=== PATIENT | female | born 1975 | race Caucasian/White ===

== ENCOUNTER 2022-04-20 13:03 | Outpatient (CLI) | payer OTHER, SELFPAY ==
--- NOTE | ~2022-04-20 | US_ITS ---
EXAMINATION: US pelvic complete w TV DATE: 04/20/2022 14:06 INDICATION: Pelvic and perineal pain Comparison:No prior studies for comparison. TECHNIQUE: Multiple transabdominal and endovaginal sonographic images of the pelvis performed. FINDINGS: The uterus measures 9.6 x 4.5 x 4.7 cm. The endometrial complex is not well identified for measurement. There are some nabothian cysts of the cervix. There is a poorly defined hypoechoic mass at the fundus of the uterus, consistent with a fibroid. The ovaries are not visualized. There is no free fluid in the pelvis. There are no abnormal masses seen on either side. IMPRESSION: 1. Enlarged uterus with fibroid changes. Reviewed, dictated and finalized at location B.
== END 2022-04-20 13:04 | disposition home or self-care (01) ==
LOC: ANHIMG 13:05
PROVIDERS: PCP Family Medicine; Visit Provider Family Medicine
DX: R10.2 Pelvic and perineal pain (principal); D25.9 Leiomyoma of uterus, unspecified
CPT/HCPCS: 76830; 76856

== ENCOUNTER 2022-08-02 07:53 | Outpatient (CLI) | payer OTHER, SELFPAY | END 2022-08-02 07:54 | disposition home or self-care (01) | PROVIDERS: PCP Family Medicine; Visit Provider Student in an Organized Health Care Education/Training Program | DX: Z01.812 Encounter for preprocedural laboratory examination (principal); D25.9 Leiomyoma of uterus, unspecified | CPT/HCPCS: 36415; 86850; 86900; 86901 ==

== ENCOUNTER 2022-08-05 00:54 | Day surgery (SDC) | payer OTHER, SELFPAY ==
[2022-08-01 15:13] VITALS: BMI 32.8
--- NOTE | 2022-08-01 15:24 | PC.NURSE ---
Report to the Outpatient Waiting Room, entrance under the green pavilion located off [facility], at 0600 on 08/05/22. OR Time: 0730. Time changes happen often and if your time is changed the preop area will call you the afternoon before. - You and your visitor will be asked to self-screen and do not enter if you have any COVID symptoms. - Only one visitor and NO children visitors are allowed at this time. - The patient visitor is requested to leave or wait in car when not with patient due to restrictions. - A mask is required within the hospital. Patients may have clear liquids (water, carbonated beverages, clear teas, apple juice) until 3 hours prior to surgery with a maximum of 20 ounces. - No food from midnight until time of surgery Take the following medications with a SIP of water the morning of surgery: N/A Medications to discontinue per physician N/A Date to take last dose N/A Please no make-up, nail english, hairspray, perfume, deodorant, or body powder the day of surgery. No jewelry (including any body piercings) or valuables the day of surgery, leave them at home. Please take a shower or bath the night before, or the morning of, surgery with an antibacterial soap. Wear comfortable, loose fitting clothing. - Jewelry must be removed prior to entering the operating room. Rings and piercings that are not removed may be cut off. - The hospital will not accept responsibility for valuables. - Please leave all valuables, including medications, at home the day of surgery. If you are going home after surgery, a licensed superintendent drivers must drive you home. - NO public transportation without another adult. - We recommend that an adult stay with you for 24 hours following discharge. - We also recommend that you do not drive, make important decision, drink alcoholic beverages, or take any drugs that were not prescribed by your health care provider for at least 24 hours after your discharge time. Follow any additional instructions given to you from your surgeon. If you or anyone in your household have experienced Covid symptoms in the past week, please notify your surgeon or the nurse liaison at the phone number below for possible testing. Telephone instructions given to patient and asked if any additional questions and then verbalized understanding. Patient advised to call surgeon office or pre surgery nurse liaison [phone] if any additional questions.
--- NOTE | 2022-08-04 17:06 | PM.IMHP ---
H&P: HPI History of Present Illness Date/Time: 08/04/22 17:06 Chief Complaint: Pelvic pain and fibroid uterus Narrative: Patient is a 47yo woman with a history of pelvic pain and fibroid uterus. Patient reports development of pelvic pain in approximately mid February 2022.? States that pain is present almost daily and is mostly left sided.? States that some days pain is dull in nature, however, other days it intensifies and becomes very severe.? Patient reports radiation of pain to lower back as well as sometimes down left leg. Pain is usually alleviated with Ibuprofen, however, sometimes this is ineffective. She does have a history of an endometrial ablation that was performed at approximately 2005. Management options discussed with patient. Following discussion, patient would like to proceed with hopefully, definitive management with a hysterectomy. In general, she is well today without complaints. Review of Systems Review of Systems: All systems reviewed & are unremarkable except as noted in HPI and below Constitutional: Constitutional: Reports as per HPI and Reports no additional constitutional complaints Eyes: Eyes: Reports as per HPI and Reports no additional eye complaints ENT: Reports system reviewed and no additional complaints, except as documented and Reports as per HPI Cardiovascular: Cardiovascular: Reports as per HPI and Reports no additional cardiovascular complaints Respiratory: Respiratory: Reports as per HPI and Reports no additional respiratory complaints Gastrointestinal: Gastrointestinal: Reports as per HPI and Reports no additional gastrointestinal complaints Genitourinary: Genitourinary: Reports no additional female genitourinary complaints and Reports as per HPI Musculoskeletal: Musculoskeletal: Reports no additional musculoskeletal complaints and Reports as per HPI Integumentary/Breasts: Skin/Breast: Reports system reviewed and no additional complaints, except as docu and Reports as per HPI Neurologic: Reports system reviewed and no additional complaints, except as documented and Reports as per HPI Psychiatric: Psychiatric: Reports no additional psychiatric complaints and Reports as per HPI Endocrine: Endocrine: Reports no additional endocrine complaints and Reports as per HPI Hematologic/Lymphatic: Hematologic/Lymphatic: Reports no additional hematologic/lymphatic complaints and Reports as per HPI Allergic/Immunologic: Allergic/Immunologic: Reports no additional allergic/immunologic complaints and Reports as per HPI PMFSH Past Medical History Medical History Frequent urination Frequent UTI History of miscarriage History of vaginal delivery Uterine fibroid Surgical History Surgical History History of cholecystectomy History of endometrial ablation History of tubal ligation Family History Family History Father Alcoholism Lung cancer Other Asthma Grandparent Breast cancer Hypertension Heart disease Mother Aneurysm Social History Social History Smoking packs per day: 0.5 Smoking cigarettes per day: 10.0 Years smoked: 6 Smoking pack-years: 3.00 Smoking status: Never smoker Tobacco type: cigarettes Second hand tobacco smoke exposure: No Smoking end date: 11/13/01 Alcohol intake: current Drinks per week: 2 Alcohol use details: GLASS OF WINE/MONTH Substance use: never Substance use type: does not use Spiritual care concerns: No Agree to blood products: Yes Meds Home Medications and Allergies Home Medications Medication Instructions Recorded Confirmed Type acetaminophen 325 mg capsule 325 mg PO Q6H PRN Pain 05/03/22 08/01/22 History (Tylenol) ibuprofen 200 mg tablet (Advil) 200 mg PO Q6H PRN Pain 05/03/22 08/01/22 History
[2022-08-05] VITALS (9 sets, daily range): BP systolic 97–124; BP diastolic 46–76; PULSE 74–84; RESP 10–20; TEMP 36.6–37.3; O2SAT 94–100
[2022-08-05] MEDS: ACETAMINOPHEN 500 MG TABLET 1000 MG PO (06:39)
[2022-08-05] MEDS: KETOROLAC 15 MG/ML VIAL (*BKC) IV PUSH (06:54)
--- NOTE | 2022-08-05 07:11 | WPDANESEPPF ---
Anes - Initial Pre Proc Eval Procedure: Operation Date: 08/05/22 07:30 Proposed Procedures p Laparoscopic Assisted Vaginal Hysterectomy, Bilateral Salpingectomy, Left Oophoretomy - Aurora Corado MD Date/Time: 08/05/22 07:11 Surgeon: Aurora Corado MD Pre Op Diagnosis: pelvic pain, uterine fibroid Patient Data Age: 47 Gender: F Height: 1.6 m Weight: 83.91 kg Allergies Allergy/AdvReac Type Severity Reaction Status Date / Time No Known Allergies Allergy Mild Verified 08/05/22 06:38 Home Medications Medication Instructions Recorded Confirmed Type acetaminophen 325 mg capsule 325 mg PO Q6H PRN Pain 05/03/22 08/05/22 History (Tylenol) ibuprofen 200 mg tablet (Advil) 200 mg PO Q6H PRN Pain 05/03/22 08/05/22 History Patient hx anesthesia problems: none Family hx anesthesia problems: none Results Review: All pre-operative results and documents have been reviewed as part of the pre-operative evaluation. FOR[facility]LY [facility] Past Medical History Medical History Frequent urination Frequent UTI History of miscarriage History of vaginal delivery Uterine fibroid Surgical History Surgical History History of cholecystectomy History of endometrial ablation History of tubal ligation Family History Family History Father Alcoholism Lung cancer Other Asthma Grandparent Breast cancer Hypertension Heart disease Mother Aneurysm Social History Social History Smoking packs per day: 0.5 Smoking cigarettes per day: 10.0 Years smoked: 6 Smoking pack-years: 3.00 Smoking status: Never smoker Tobacco type: cigarettes Second hand tobacco smoke exposure: No Smoking end date: 11/13/01 Alcohol intake: current Drinks per week: 2 Alcohol use details: GLASS OF WINE/MONTH Substance use: never Substance use type: does not use Living arrangements: with family Spiritual care concerns: No Agree to blood products: Yes Anes - Eval Final PreProcedure Day of Procedure 08/05/22 07:11 Patient weight: obese Heart: regular rate and rhythm Lungs: clear to auscultation Airway: Mallampati scale class II Neurological: alert and oriented Last oral intake: >/= 8 hours ASA classification: II Emergent: no Anesthetic plan: proceed Anesthesia type and monitoring: general ETT and standard monitoring Results Review: All pre-operative results and documents have been reviewed as part of the pre-operative evaluation. Informed Consent: The patient's anesthetic plan and its attendant risks and benefits were discussed with the patient/family/POA. Questions were solicited and answers provided to the satisfaction of the patient/family/POA.
[2022-08-05] MEDS: LACTATED RINGERS 1,000 ML 30 ML IV CONT ×2 (07:14→11:27)
--- NOTE | 2022-08-05 07:27 | WPDHPUPDATE1 ---
History and Physical Update Update Date/Time: 08/05/22 07:27 History and Physical has been reviewed, including an updated exam of the patient. There are NO changes in the patient's condition. Risks, benefits, and alternatives have been discussed and questions answered. Patient agrees to proceed with procedure.
[2022-08-05] MEDS: ceFAZolin 2 GM/D5W 50 ML 2 GM/50 ML BAG IVPB (07:30)
[2022-08-05] MEDS: BUPIVACAINE HCL 0.25% PF 30 ML VIAL INFILTRATE (08:12)
[2022-08-05] MEDS: VASOPRESSIN INJ 20 UNITS/ML VIAL I-CERVICAL (09:20)
--- NOTE | 2022-08-05 11:25 | W.PM.PROC2 ---
Procedure Note - Detailed Date of Procedure 08/05/22 Pre-op Diagnosis pelvic pain, uterine fibroid Post-op Diagnosis Same Procedure Performed Laparoscopic assisted vaginal hysterectomy, bilateral salpingectomy, left oophorectomy, cystoscopy Surgeon Aurora Corado MD Cable Placer Esperanza Olivares Anesthesia General Findings Grossly normal appearing uterus, fallopian tubes with evidence of prior interruption, however, distal portions of both tubes appeared distended and enlarged, normal appearing ovaries bilaterally, a portion of the left ovary and fallopian tube were attached to the epiploica of the large bowel via filmy adhesions; strong bilateral ureteral flow visualized on cystoscopy Description of Procedure The patient was taken to the operating room, where she self-transferred to the operating room table. She was placed in dorsal supine position. General anesthesia was administered without difficulty and found to be adequate.? The patient was repositioned in dorsal lithotomy position with the use of Corby stirrups and arms were carefully tucked at her side.? She was prepped and draped in usual sterile fashion.? A Martinez catheter was inserted using sterile technique.? A bivalve speculum was then placed into the vagina.? With good visualization of the cervix, the anterior lip of the cervix was grasped with a single-tooth tenaculum. With some resistance encountered, the cervix was then serially dilated to accommodate the insertion of a HUMI uterine manipulator, which was inserted into the uterus for use during the laparoscopic portion of the case.? The tenaculum and speculum were removed.? Dredge Lever Operator's gloves were changed.? Attention was then turned to the patient's abdomen.? A small amount of 0.25% Marcaine was injected in the infraumbilical region.? A small supraumbilical incision was made with a scalpel.? While tenting the abdominal wall up, a Veress needle was inserted into the abdominal cavity, however, proper intra-abdominal confirmation was unable to be determined with saline.?A few attempts were made, however, confirmation could not be determined. The infraumbilical incision was extended slightly and the fascia beneath the incision was identified and grasped with two Allis clamps. The fascia was incised with a scalpel. The peritoneum was visualized underneath, grasped with a Ofe clamp, and also entered sharply with the scalpel. The fascial incision was extended to accommodate a size 11 trocar. The edges of the fascia were tagged with 0 vicryl. Trocar was inserted directly into the abdominal cavity. Carbon dioxide tubing was connected to the trocar and insufflation was begun.? The abdomen was insufflated to 15 mmHg.? Once adequate pneumoperitoneum was achieved, the laparoscope was introduced into the abdominal cavity. For enhanced visualization and completion of the procedure, two additional lateral trocars were placed, one in the left lower quadrant and one in the right lower quadrant. A small amount of 0.25% Marcaine was injected in the right lower quadrant. A skin incision was made with a scalpel and a 5 mm trocar was placed under direct visualization.? Similarly, a small amount of 0.25% Marcaine was injected and a skin incision was made in the left lower quadrant. An additional 5 mm trocar was placed under direct visualization.? The patient was placed in Trendelenburg position.? This allowed good visualization of pelvic structures and a quick survey of the pelvic cavity was completed.? The uterus appeared to be grossly normal.?A small portion of the tip of the uterine manipulator was seen protruding through the posterior wall of the uterus near the lower uterine segment. Both fallopian tubes showed evidence of prior interruption. The distal portion of both fallopian tubes were noticeably distended. The residual distal end of the left fallopian tube was significantly distended and enlarged. The left ovary appeared normal. An portion of the inferior aspect of both the lef
[2022-08-05] MEDS: fentaNYL CITRATE INJ (*CRX) 100 MCG/2 ML VIAL 25 MCG IV PUSH (12:17)
--- NOTE | 2022-08-05 12:59 | ADMGEN ---
1245-This patient, Amelie Felipe, was admitted to OB 2nd Floor Room 278-00. Patient/family oriented to hospital policies and general routines including ID bracelet, bed and alarms, visiting hours, pain management, procedures, bathroom and other care routines, personal items, smoking policy, room service/diet, and visiting hours. Information on how to activate the Rapid Response Team has been discussed. Patient/Family are encouraged to report perceived risks to care and to ask questions if they do not understand what they are told or what they should do.
[2022-08-05] MEDS: DEXTROSE 5%/0.45% SOD CHL 1,000 ML 125 ML IV CONT (13:55)
[2022-08-05] MEDS: KETOROLAC 30 MG/ML VIAL (*BKC) IV PUSH (14:02)
[2022-08-05] MEDS: DOCUSATE SODIUM 100 MG CAPSULE PO (17:15)
[2022-08-05] MEDS: HYDROcodone/acetaminophen (*CRX) 10-325 MG TABLET 1 TAB PO (20:51)
[2022-08-06 01:10] VITALS: PULSE 80; RESP 16; TEMP 36.6; O2SAT 99
[2022-08-06] MEDS: HYDROcodone/acetaminophen (*CRX) 5-325 MG TABLET 1 TAB PO (04:43)
[2022-08-06 05:00] VITALS: BP 100/59; PULSE 74; RESP 16; TEMP 36.5; O2SAT 100
[2022-08-06 08:45] VITALS: BP 91/41; PULSE 68; RESP 16; TEMP 36.3; O2SAT 97
[2022-08-06] MEDS: DOCUSATE SODIUM 100 MG CAPSULE PO (10:24)
[2022-08-06] MEDS: IBUPROFEN 600 MG TABLET PO (10:24)
--- NOTE | 2022-08-06 10:26 | PM.GYNPNOP ---
REED OR WIND INSTRUMENT TUNER - A/P Assessment and plan (1) S/P laparoscopic assisted vaginal hysterectomy (LAVH): Code(s): Z90.710 - Acquired absence of both cervix and uterus Status: Acute Assessment and Plan: POD#1 doing well encourage ambulation and use of IS anticipate dc home today await spontaneous void and passage of flatus emergency precautions reviewed f/u in office in 2 weeks for postop visit Postoperative Procedures: Procedures Operation Date: 08/05/22 07:30 Actual Procedure Side Surgeon p Laparoscopic Assisted Vaginal Hysterectomy, Bilateral Salpingectomy, Left Oophoretomy, Cystoscopy Left Aurora Corado MD Time Spent With Patient Time: Total time spent is greater than 50% in coordination of care (as documented) at patient's floor/unit and/or counseling patient: Time with patient: less than 15 minutes REED OR WIND INSTRUMENT TUNER- PN:Subj Post-Op Subjective Date/time seen: 08/06/22 10:26 Patient doing well this morning. Minimal pain well controlled with medication. Denies any headache, chest pain, shortness of breath, nausea, or vomiting. Tolerating regular p.o. diet. Martinez catheter recently removed. Has not voided since removal. No flatus yet. Ambulating without difficulty. Denies any vaginal bleeding. Per report, scant dry blood on vaginal packing upon removal. Review of Systems Review of Systems: All systems reviewed & are unremarkable except as noted in HPI and below Gastrointestinal: Gastrointestinal: Reports as per HPI and Reports no additional gastrointestinal complaints Genitourinary: Genitourinary: Reports no additional female genitourinary complaints and Reports as per HPI Exam Const: General: cooperative, healthy appearing, comfortable and no acute distress GI: Inspection: non-distended GI Palp: Yes Soft to palpation and No Tenderness to palpation present (GI) Other: inc sites well healing Extrem: Right lower extremity: no edema Left lower extremity: no edema Other: no calf tenderness REED OR WIND INSTRUMENT TUNER - PN: Obj Data Vital Signs Vital Signs: Vital Signs - 24 hr 08/05/22 11:27 08/05/22 11:40 08/05/22 11:50 Temperature 37.3 C Pulse Rate 83 80 Respiratory Rate 10 L 12 Blood Pressure 104/46 L 99/57 L Pulse Oximetry 100 100 Oxygen Delivery Simple Face Mask Simple Face Mask Room Air Oxygen Flow Rate 6 6 08/05/22 11:55 08/05/22 12:10 08/05/22 12:25 Temperature Pulse Rate 84 77 77 Respiratory Rate 18 18 20 Blood Pressure 97/56 L 103/57 L 105/58 L Pulse Oximetry 95 94 94 Oxygen Delivery Room Air Room Air Room Air Oxygen Flow Rate 08/05/22 12:40 08/05/22 14:00 08/05/22 14:00 Temperature 37.1 C 36.7 C Pulse Rate 80 79 79 Respiratory Rate 18 16 16 Blood Pressure 100/53 L 108/65 Pulse Oximetry 94 98 98 Oxygen Delivery Room Air Room Air Oxygen Flow Rate 08/05/22 18:45 08/06/22 01:10 08/06/22 05:00 Temperature 36.6 C 36.6 C 36.5 C Pulse Rate 82 80 74 Respiratory Rate 18 16 16 Blood Pressure 124/76 100/59 L Pulse Oximetry 98 99 100 Oxygen Delivery Oxygen Flow Rate 08/06/22 08:45 08/06/22 08:45 Temperature 36.3 C L Pulse Rate 68 68 Respiratory Rate 16 16 Blood Pressure 91/41 L Pulse Oximetry 97 97 Oxygen Delivery Room Air Oxygen Flow Rate Intake/Output Intake/Output: Intake & Output 08/03/22 08/04/22 08/05/22 08/06/22 23:59 23:59 23:59 23:59 Intake Total 4711 500 Output Total 2925 825 Balance 1786 -325 Meds/Results Medications: Active Medications Generic Name Dose Route Start Last Admin Trade Name Freq PRN Reason Stop Dose Admin Hydrocodone Bitart/Acetaminophen 1 tab 08/05/22 12:44 08/06/22 04:43 Hydrocodone/Acetaminophen (*Crx) 5-325 Mg Tablet PO 1 tab Q3H PRN Administration Pain Rated 5 or Less Hydrocodone Bitart/Acetaminophen 1 tab 08/05/22 12:44 08/05/22 20:51 Hydrocodone/Acetaminophen (*Crx) 10-325 Mg Tablet PO 1 tab Q3H PRN Administration Pain Rated 6 or Greater Docusate Sodium 100 mg
--- NOTE | 2022-08-06 10:31 | P.DS_ITS ---
DS: Admitting Diagnosis Discharge Date 08/06/22 Admitting Diagnosis Pelvic pain Fibroid uterus DS: Discharge Diagnosis Discharge Diagnosis (1) S/P laparoscopic assisted vaginal hysterectomy (LAVH): Code(s): Z90.710 - Acquired absence of both cervix and uterus Status: Acute DS: Summary Hospital Course Hospital Course: Uncomplicated Time Spent with Patient Time attestation: Total time spent providing and/or coordinating discharge services: DS: Data Data Completed and Pending Pending studies at discharge: Pending at discharge 08/05/22 10:09 Surgical [PTH] Routine Surgical [PTH] Routine Discharge Plan Discharge Patient Disposition: Home, Self-Care Discharge Instructions: Call office ([phone]) to schedule the following appointments: 1. Postoperative/wound check in 2 weeks. 2. Postoperative visit in 4-6 weeks. You may take Ibuprofen 600mg every 6 hours as needed for pain. I have sent a prescription for a stronger pain medication, [place], to your pharmacy. You may take this as prescribed for breakthrough pain (pain that is not controlled with Ibuprofen). No driving for at least two weeks. You also may not drive while taking narcotics. Pain medication may make you constipated. It may be helpful to take an [id number] stool softener, such as Colace and/or Senokot, along with the pain medication to help lessen constipation. Call office or go to ED for pain not controlled with medication, headache, chest pain, shortness of breath, fever, chills, persistent nausea or vomiting, severe abdominal pain, heavy vaginal bleeding or discharge, foul vaginal discharge or odor, any redness near incision, severe pain, pus or drainage from incision sites. Stand Alone Forms: General Discharge Instructions Follow-up/Referrals: Aurora Corado MD [Physician] - Discharge Medications: New hydrocodone-acetaminophen 5-325 mg Tablet 1 - 2 tablet PO Q4-6H PRN (Reason: Pain Rated 5 Or Less) Qty: 30 0RF Continued ibuprofen [Advil] 200 mg tablet 200 mg PO Q6H PRN (Reason: Pain) Discontinued acetaminophen [Tylenol] 325 mg capsule 325 mg PO Q6H PRN (Reason: Pain)
== END 2022-08-06 13:06 | disposition home or self-care (01) ==
LOC: ANHSURGERY 06:11 → ANHOB2 14:50
PROVIDERS: PCP Family Medicine; Visit Provider Student in an Organized Health Care Education/Training Program
PROC: 0UT9FZZ Resection of Uterus, Via Natural or Artificial Opening With Percutaneous Endoscopic Assistance (ICD-10-PCS; CPT 58552; principal; 2022-08-05 07:30)
DX: R10.2 Pelvic and perineal pain (principal); N83.202 Unspecified ovarian cyst, left side; Z87.891 Personal history of nicotine dependence
CPT/HCPCS: 58552; 36415; 86850; 86900; 86901; 88302; 88307; 99199; A9270; J0690; J1100; J1885; J2250; J2405; J2704; J2710; J3010; J7030; J7120

== ENCOUNTER 2024-08-13 01:27 | Day surgery (SDC) | payer BC, SELFPAY ==
[2024-07-24 15:12] VITALS: BMI 34.0
[2024-08-13 11:45] VITALS: BP 118/60; PULSE 72; RESP 16; TEMP 35.9; O2SAT 100; BMI 33.5
[2024-08-13] MEDS: LACTATED RINGERS 1,000 ML 30 ML IV CONT (12:06)
--- NOTE | 2024-08-13 12:31 | PM.IMHP ---
H&P: HPI History of Present Illness Date/Time: 08/13/24 12:31 Chief Complaint: screening for colorectal cancer Narrative: this is a 49-year-old woman who presents for colonoscopy. She has never had a colonoscopy before. She denies any hematochezia or melena. She denies any family history of colon cancer. Review of Systems Review of Systems: All systems reviewed & are unremarkable except as noted in HPI and below Constitutional: Constitutional: Denies chills, Denies fever(s), Denies headache(s) and Denies weight loss Eyes: Eyes: Denies change in vision ENT: Denies dizziness, Denies headache(s), Denies neck mass and Denies throat swelling Cardiovascular: Cardiovascular: Denies chest pain, Denies lightheadedness and Denies dyspnea Respiratory: Respiratory: Denies cough, Denies dyspnea and Denies wheezing Gastrointestinal: Gastrointestinal: Denies abdominal pain, Denies change in bowel habits, Denies nausea and Denies vomiting Genitourinary: Genitourinary: Denies hematuria and Denies dysuria Musculoskeletal: Musculoskeletal: Reports as per HPI Integumentary/Breasts: Skin/Breast: Reports as per HPI Neurologic: Denies dizziness and Denies headache(s) Allergic/Immunologic: Allergic/Immunologic: Denies throat swelling and Denies wheezing PMF Past Medical History Medical History Frequent urination Frequent UTI History of miscarriage History of vaginal delivery Uterine fibroid Surgical History Surgical History History of cholecystectomy History of endometrial ablation History of tubal ligation S/P laparoscopic assisted vaginal hysterectomy (LAVH) 08/23/22 Family History Family History Father Alcoholism Lung cancer Other Asthma Grandparent Breast cancer Hypertension Heart disease Mother Aneurysm Social History Social History Smoking packs per day: 0.5 Smoking cigarettes per day: 10.0 Years smoked: 6 Smoking pack-years: 3.00 Smoking status: Former smoker Tobacco type: cigarettes Second hand tobacco smoke exposure: No Smoking end date: 11/13/01 Alcohol intake: current Drinks per week: 2 Alcohol use details: GLASS OF WINE/MONTH Substance use: never Substance use type: does not use Lack of Transportation: No Lack of Food: Never True Current Housing: I Have Housing Concerned About Future Housing: No Difficulty Paying Gas/Electric Bills: No Difficulty Paying for Meds: No Currently Unemployed: No Education: High School Diploma/GED Difficulty w/ Childcare or Family Care: No Living arrangements: with family Occupation/Education: occupation Gender identity (if verbalized by the patient): Female Sexual Orientation (if Verbalized by the Patient): Straight or Heterosexual Spiritual care concerns: No Agree to blood products: Yes Meds Home Medications and Allergies Home Medications Medication Instructions Recorded Confirmed Type cranberry 500 mg capsule 500 mg PO BID 05/29/24 08/13/24 History multivitamin (Daily Multi-Vitamin 1 tablet PO DAILY 05/29/24 08/13/24 History tablet) omega 4-fwi-ihy-fish oil 60 mg-90 1 cap PO DAILY 05/29/24 08/13/24 History mg-500 mg capsule (Fish Oil) Allergies Allergy/AdvReac Type Severity Reaction Status Date / Time No Known Allergies Allergy Mild Verified 08/13/24 11:50 Vital Signs Vital Signs - 24 hr 08/13/24 11:45 Temperature 96.6 F L Pulse Rate 72 Respiratory Rate 16 Blood Pressure 118/60 Pulse Oximetry 100 Oxygen Delivery Room Air Exam Const: General: no acute distress and alert Orientation/consciousness: patient oriented x3 HENMT: Head: normocephalic and atraumatic Ears: hearing grossly normal bilaterally Face/Nose/Sinus: Normal nares present Mouth
--- NOTE | 2024-08-13 12:53 | WPDANESEPPF ---
Anes - Initial Pre Proc Eval Procedure: Operation Date: 08/13/24 13:00 Proposed Procedures p Screening Colonoscopy - Danny Rice DO Date/Time: 08/13/24 12:53 Surgeon: Danny Rice DO Pre Op Diagnosis: Neoplasm screening Patient Data Age: 49 Gender: F Height: 1.6 m Weight: 86 kg Last Vital Signs Temp 96.6 F L 08/13/24 11:45 Pulse 72 08/13/24 11:45 Resp 16 08/13/24 11:45 BP 118/60 08/13/24 11:45 Pulse Ox 100 08/13/24 11:45 O2 Del Method Room Air 08/13/24 11:45 Allergies Allergy/AdvReac Type Severity Reaction Status Date / Time No Known Allergies Allergy Mild Verified 08/13/24 11:50 Home Medications Medication Instructions Recorded Confirmed Type cranberry 500 mg capsule 500 mg PO BID 05/29/24 08/13/24 History multivitamin (Daily Multi-Vitamin 1 tablet PO DAILY 05/29/24 08/13/24 History tablet) omega 5-ajr-nci-fish oil 60 mg-90 1 cap PO DAILY 05/29/24 08/13/24 History mg-500 mg capsule (Fish Oil) Patient hx anesthesia problems: none Family hx anesthesia problems: none Results Review: All pre-operative results and documents have been reviewed as part of the pre-operative evaluation. [facility] Past Medical History Medical History Frequent urination Frequent UTI History of miscarriage History of vaginal delivery Uterine fibroid Surgical History Surgical History History of cholecystectomy History of endometrial ablation History of tubal ligation S/P laparoscopic assisted vaginal hysterectomy (LAVH) 08/23/22 Family History Family History Father Alcoholism Lung cancer Other Asthma Grandparent Breast cancer Hypertension Heart disease Mother Aneurysm Social History Social History Smoking packs per day: 0.5 Smoking cigarettes per day: 10.0 Years smoked: 6 Smoking pack-years: 3.00 Smoking status: Former smoker Tobacco type: cigarettes Second hand tobacco smoke exposure: No Smoking end date: 11/13/01 Alcohol intake: current Drinks per week: 2 Alcohol use details: GLASS OF WINE/MONTH Substance use: never Substance use type: does not use Lack of Transportation: No Lack of Food: Never True Current Housing: I Have Housing Concerned About Future Housing: No Difficulty Paying Gas/Electric Bills: No Difficulty Paying for Meds: No Currently Unemployed: No Education: High School Diploma/GED Difficulty w/ Childcare or Family Care: No Living arrangements: with family Occupation/Education: occupation Gender identity (if verbalized by the patient): Female Sexual Orientation (if Verbalized by the Patient): Straight or Heterosexual Spiritual care concerns: No Agree to blood products: Yes Anes - Eval Final PreProcedure Day of Procedure 08/13/24 12:53 Patient weight: overweight Heart: regular rate and rhythm Lungs: clear to auscultation Airway: Mallampati scale class II Neurological: alert and oriented Last oral intake: >/= 8 hours ASA classification: II Emergent: no Anesthetic plan: proceed Anesthesia type and monitoring: general GIVS and standard monitoring Results Review: All pre-operative results and documents have been reviewed as part of the pre-operative evaluation. Pt is ex smoker, quit approx 2001. Informed Consent: The patient's anesthetic plan and its attendant risks and benefits were discussed with the patient/family/POA. Questions were solicited and answers provided to the satisfaction of the patient/family/POA.
[2024-08-13 13:27] VITALS: BP 106/59; PULSE 72; RESP 20; O2SAT 100
[2024-08-13 13:37] VITALS: BP 110/61; PULSE 66; RESP 22; O2SAT 100
[2024-08-13 13:47] VITALS: BP 103/58; PULSE 66; RESP 23; O2SAT 100
== END 2024-08-13 13:55 | disposition home or self-care (01) ==
PROVIDERS: PCP Family Medicine; Referring Provider Nurse Practitioner Family; Visit Provider Surgery
PROC: 0DJD8ZZ Inspection of Lower Intestinal Tract, Via Natural or Artificial Opening Endoscopic (ICD-10-PCS; CPT 45378; principal; 2024-08-13 13:00)
DX: Z12.11 Encounter for screening for malignant neoplasm of colon (principal); K62.1 Rectal polyp; R35.0 Frequency of micturition; Z98.890 Other specified postprocedural states; Z90.49 Acquired absence of other specified parts of digestive tract; Z98.51 Tubal ligation status; Z87.891 Personal history of nicotine dependence; Z80.1 Family history of malignant neoplasm of trachea, bronchus and lung; Z80.3 Family history of malignant neoplasm of breast; Z82.49 Family history of ischemic heart disease and other diseases of the circulatory system
CPT/HCPCS: 45380; 88305; J2003; J2704; J7120

== ENCOUNTER 2024-09-25 13:44 | Outpatient (CLI) | payer BC, SELFPAY ==
--- NOTE | ~2024-09-25 | MM_ITS ---
EXAMINATION: MM screening pushpa BI w claudia HISTORY: Screening mammogram TECHNIQUE: Craniocaudal and mediolateral oblique 3-D tomosynthesis images were obtained and synthetic 2-D images were generated. CAD analysis was submitted and interpreted. COMPARISON: No prior mammogram is available for comparison at this institution. BREAST PARENCHYMAL COMPOSITION:Not Dense. There are scattered areas of fibroglandular density. FINDINGS: There is a partially imaged 5 mm mass at the posterior, slightly outer right breast. This i s not seen on MLO view. No parenchymal abnormality left breast. No suspicious microcalcification in e ither breast. IMPRESSION: 5 mm partially imaged mass in the posterior, slightly outer right breast. Exaggerated right CC and t rue lateral views, and possibly ultrasound, are recommended for further evaluation. BI-RADS Category 0: Incomplete: Needs additional imaging evaluation. Reviewed, dictated and finalized at location . CH ENGINEER IMPRESSION: 5 mm partially imaged mass in the posterior, slightly outer right breast. Exag gerated right CC and true lateral views, and possibly ultrasound, are recommend ed for further evaluation. BI-RADS Category 0: Incomplete: Needs additional imaging evaluation.
== END 2024-09-25 13:45 | disposition home or self-care (01) ==
LOC: ANHIMG 13:45
PROVIDERS: PCP Family Medicine; Visit Provider Nurse Practitioner Family
DX: Z12.31 Encounter for screening mammogram for malignant neoplasm of breast (principal); R92.8 Other abnormal and inconclusive findings on diagnostic imaging of breast
CPT/HCPCS: 77063; 77067

== ENCOUNTER 2024-10-14 13:15 | Outpatient (CLI) | payer BC, SELFPAY ==
--- NOTE | ~2024-10-14 | MMUS_ITS ---
EXAMINATION: MM diagnostic pushpa RT w claudia, US breast RT limited HISTORY: Follow-up right breast mass TECHNIQUE: Additional 3-D tomosynthesis images of the right breast were performed and synthetic 2-D i mages were generated. CAD analysis was submitted and interpreted. High resolution Limited right breas t ultrasound was performed. COMPARISON: 09/25/2024 BREAST PARENCHYMAL COMPOSITION: Not dense: There are scattered areas of fibroglandular density. FINDINGS: MAMMOGRAPHIC FINDINGS: There is a small mass in the lower outer quadrant of the right breast posteriorly near the chest wall . There are no suspicious calcifications or architectural distortion. ULTRASOUND: Limited right breast ultrasound: At 7:00, 5 cm from the nipple there is an oval hypoechoic parallel o riented mass with circumscribed margins, no posterior features or internal vascularity measuring 5 mm . This likely corresponds to the mammographic finding. IMPRESSION: 1. Probable benign 5 mm right breast mass at 7:00, 5 cm from the nipple. 2. Recommend 6 month follow-up diagnostic right mammogram and Limited right breast ultrasound BI-RADS category 3, probably benign findings. Reviewed, dictated and finalized at location B. DENT INVESTIGATOR IMPRESSION: 1. Probable benign 5 mm right breast mass at 7:00, 5 cm from the nipple. 2. Recommend 6 month follow-up diagnostic right mammogram and Limited right charan ast ultrasound BI-RADS category 3, probably benign findings.
== END 2024-10-14 13:16 | disposition home or self-care (01) ==
PROVIDERS: PCP Family Medicine; Visit Provider Nurse Practitioner Family
DX: R92.8 Other abnormal and inconclusive findings on diagnostic imaging of breast (principal)
CPT/HCPCS: 76642; 77061; 77065; G0279

== ENCOUNTER 2025-04-15 10:22 | Outpatient (CLI) | payer BC, SELFPAY ==
--- NOTE | ~2025-04-15 | MMUS_ITS ---
MM DIAGNOSTIC CHLOE RT W MARIANNE AND US BREAST RT LIMITED INDICATION: 49-year old female; BI-RADS 3, short-term follow-up probably benign right breast mass at 7:00 location. COMPARISON: 10/14/2024. TECHNIQUE: Digital breast tomosynthesis True lateral CC and MLO views of RIGHT breast were obtained with computer-aided detection to assist in interpretation of the study. FINDINGS: There are scattered areas of fibroglandular density. Circumscribed mass in the lower right breast is reidentified only on ML view is unchanged in the inte rval. There are no other suspicious masses, calcifications, architectural distortion or other abnorma lity in right breast. RIGHT BREAST ULTRASOUND FINDINGS: A 0.4 x 0.4 x 0.3 cm circumscribed hypoechoic mass at 7:00 location 5 cm from the nipple in the RIGHT breast is reidentified and Unchanged. IMPRESSION: RIGHT BREAST PROBABLY BENIGN FINDING HAS DEMONSTRATED 6 MONTHS STABILITY SINCE THE INITIAL EVALUATION ON 10/14/2024. RECOMMENDATION: 6 MONTH FOLLOW-UP RIGHT BREAST ULTRASOUND AND BILATERAL DIAGNOSTIC MAMMOGRAPHY. BI-RADS 3, PROBABLY BENIGN Reviewed, dictated and finalized at location B. IMPRESSION: RIGHT BREAST PROBABLY BENIGN FINDING HAS DEMONSTRATED 6 MONTHS STABILITY SINCE THE INITIAL EVALUATION ON 10/14/2024. RECOMMENDATION: 6 MONTH FOLLOW-UP RIGHT BREAST ULTRASOUND AND BILATERAL DIAGNOSTIC MAMMOGRAPHY. BI-RADS 3, PROBABLY BENIGN
== END 2025-04-15 10:23 | disposition home or self-care (01) ==
PROVIDERS: PCP Family Medicine; Visit Provider Obstetrics & Gynecology
DX: R92.8 Other abnormal and inconclusive findings on diagnostic imaging of breast (principal)
CPT/HCPCS: 76642; 77061; 77065; G0279

== ENCOUNTER 2025-10-16 10:51 | Outpatient (CLI) | payer BC, SELFPAY ==
--- NOTE | ~2025-10-16 | MMUS_ITS ---
EXAMINATION: MM diagnostic pushpa BI w claudia, US breast RT limited HISTORY: Follow-up TECHNIQUE: Craniocaudal and mediolateral oblique 3-D tomosynthesis images were obtained and synthetic 2-D images were generated. CAD analysis was submitted and interpreted. Grayscale sonography over the area(s) of interest with color Doppler if there is a finding. COMPARISON: April 15, 2025. 2023. BREAST PARENCHYMAL COMPOSITION: Not Dense: There are scattered areas of fibroglandular MAMMOGRAM FINDINGS: No suspicious masses are seen mammographically. There are no suspicious calcifications. No unexplained architectural distortion is seen. There are no skin or nipple abnormalities identified. There is no adenopathy seen on the images submitted. ULTRASOUND FINDINGS: Sonography through the 7:00 right breast again demonstrates a circumscribed, homogeneous, hypoechoic mass. The maximum dimension is 3 mm. Previously it was 4 mm. IMPRESSION: Small circumscribed nodule in question appears similar, measuring minimally smaller. This is still considered probably benign. Six-month follow-up right breast ULTRASOUND ONLY is recommended. BI-RADS 3 - Probably benign - short-term follow-up is recommended. Reviewed, dictated and finalized at location B. E BOARDER IMPRESSION: Small circumscribed nodule in question appears similar, measuring minimally sma ller. This is still considered probably benign. Six-month follow-up right breas t ULTRASOUND ONLY is recommended. BI-RADS 3 - Probably benign - short-term follow-up is recommended.
--- OUTSIDE RECORDS SUMMARY | 2025-10-16 12:14 | XMS_ITS | Clinical Summary ---
Author Organization [facility] Address [address] [place] [address] Care Team Providers Care [employer] Cashier Name Role Phone Jenniffer Herrera Primary Care Provider [phone] Allergies No known active allergies Medications cephALEXin 500 MG capsule Take 500 mg by mouth 2 (two) times daily. 06/13/2019 Active hydrocodone-ariel taminophen 5-325 MG tablet Take 1 tablet by mouth every 4 (four) hours as needed for Pain (can take 2 tabs every 6 hours). Active multi vitamin/mineral s (THERA-M ENHANCED) tablet Take 1 tablet by mouth daily. Active cranberry 450 MG Tab tablet Take 1 tablet (450 mg total) by mouth. Active fish oil (OMEGA-3 FATTY ACID) 1000 MG Cap capsule Take 1 capsule (1,000 mg total) by mouth 2 (two) times daily. Active methylPREDNISol one, NEIL, (MEDROL DOSEPAK) 4 MG tabletIndicatio ns:Hand pain, left 6 TABLETS ON DAY ONE, 5 TABLETS DAY TWO, 4 TABLETS DAY THREE, 3 TABLETS DAY FOUR, 2 TABLETS DAY FIVE, AND 1 TABLET DAY SIX 1 each 12/26/2024 Active Active Problems Problem Noted Date Diagnosed Date Unspecified abdominal pain 06/04/2019 Overview (06/04/2019): Added automatically from request for surgery [id number] Social History Tobacco Use Types Packs/Day Years Used Date Smoking Tobacco: Former Cigarettes Q uit: 2001 Passive Smoke Exposure: Past Smokeless Tobacco: Never Tobacco Cessation:Counseling Given: No Alcohol Use Standard Drinks/Week Comments Yes 1.7 (1 standard drink = 0.6 oz p ure alcohol) PHQ-2 Answer Date Recorded Patient Health Questionnaire-2 Score 0 12/26/2024 Comments No Sex and Gender Information Value Date Recorded Sex Assigned at Not on file Legal Sex Female 9:10 PM CDT Gender Identity Not on file Sexual Orientation Not on file Last Filed Vital Signs Vital Sign Reading Time Taken Comments Blood Pressure 100/66 12/26/2024 8:16 AM HEALTH PROGRAM ANALYST Pulse 76 12/26/2024 8:16 AM HEALTH PROGRAM ANALYST Temperature 36.3 C (97.4 F) 12/26/2024 8:16 AM HEALTH PROGRAM ANALYST Respiratory Rate 20 12/26/2024 8:16 AM HEALTH PROGRAM ANALYST Oxygen Saturation 99% 12/26/2024 8:16 AM HEALTH PROGRAM ANALYST Inhaled Oxygen Concentration - - Weight 86.4 kg (190 lb 6.4 oz) 12/26/2024 8:16 A M HEALTH PROGRAM ANALYST Height 160 cm (5' 3) 12/26/2024 8:16 AM HEALTH PROGRAM ANALYST Body Mass Index 33.73 12/26/2024 8:16 AM HEALTH PROGRAM ANALYST Plan of Treatment Health Maintenance Due Date Last Done Comments Colorectal Cancer Screening Colonoscopy (10 Years) 1977 Annual Physical 1980 Hepatitis C 1995 DTaP, Tdap and Td Vaccines ( 1 - Tdap) 1996 Hepatitis B Vaccines (1 of 3 - 19+ 3-dose series) 1996 Mammogram Screening 2017 COVID-19 Vaccine ( - 2024-2 6 season) 2025 Influenza Adult (#1) 2025 PHQ-2 (Physician [place]) Completed 12/26/2024 Hepatitis A Vaccines Aged Out No long er eligible based on patient's age to complete this topic Meningococcal B Vaccine Aged Out No l onger eligible based on patient's age to complete this topic Meningococcal Vaccine Aged Out No royer jessica eligible based on patient's age to complete this topic Pneumococcal Vaccine: Pediat rics (0 to 5 Years) and At-Risk Patients (6 to 49 Years) Aged Out No longer eligi ble based on patient's age to complete this topic RSV Immunizations Under 20 Months Aged Out No longer eligible based on patient's age to complete this topic Insurance Care Teams Gas [employer] Cashier Relationship Specialty Start Date End Date Jenniffer Herrera DO PCP - General FAMILY PRACTICE 05/21/19
== END 2025-10-16 10:52 | disposition home or self-care (01) ==
LOC: ANHFOHIMG 10:55
PROVIDERS: PCP Surgery; Visit Provider Obstetrics & Gynecology
DX: R92.8 Other abnormal and inconclusive findings on diagnostic imaging of breast (principal)
CPT/HCPCS: 76642; 77062; 77066; G0279